=== PATIENT | female | born 1970 | race Caucasian/White ===

== ENCOUNTER 2023-10-27 05:43 | Emergency (ER) | payer MEDICAID, SELFPAY ==
[2023-10-27 05:45] VITALS: BP 140/97; PULSE 90; RESP 23; TEMP 37.1; O2SAT 97; BMI 31.3
--- NOTE | 2023-10-27 05:56 | EKG12_ITS ---
Test Reason : DYSRHYTHMIA Blood Pressure : / mmHG Vent. Rate : 068 BPM Atrial Rate : 068 BPM P-R Int : 130 ms QRS Dur : 078 ms QT Int : 412 ms P-R-T Axes : 063 099 062 degrees QTc Int : 438 ms Normal sinus rhythm Rightward axis Borderline ECG No previous ECGs available Confirmed by Harjinder Elise ([id number]), mapping editor DEVON LENNON ([id number]) on 10/28/2023 8:16:09 AM Referred By: Confirmed By:Harjinder Elise
--- NOTE | 2023-10-27 05:57 | EX.ED.DYSGE1 ---
HPI History of Present Illness Chief Complaint: General Illness Detail of Chief Complaint: Generalized weakness, hypertension, shaky Informant: patient and family Narrative Narrative: Patient brought to the emergency department for complaint of not feeling well. Patient yesterday apparently was seen at [facility] for complaint of dizziness and nausea. Her workup there was unremarkable and she was discharged to home. It was noted last week that she was at the chiropractor that her blood pressure was 150 systolic over 80s diastolic and was told to keep an eye on her blood pressure. Patient states that she slept until about midnight last night and then was just in and out of sleep. She has been under increased stress as her daughter is getting recently. No history of anxiety or panic disorder. She has had no recent illness. She has had no vomiting or diarrhea. She has had no fever. [facility] Medical History no medical history Home Medications ?Medication ?Instructions ?Recorded ?Last Taken ?Type lorazepam 1 mg tablet (Ativan) 1 mg PO TID PRN anxiety #10 tabs 10/27/23 Unknown Rx Allergy/AdvReac Type Severity Reaction Status Date / Time No Known Allergies Allergy Verified 10/27/23 05:45 Social History Smoking Status: Never smoker ROS ROS ED Review of Systems ROS Unobtainable: other Constitutional Constitutional ED: Reports lethargy; Denies chills, fever(s), sweats or weight loss Eyes Eyes: Denies blurry vision, change in vision or diplopia ENT ENT ED: Denies rhinorrhea or sore throat Cardiovascular Cardiovascular: Reports racing heartbeat; Denies chest pain or orthopnea Respiratory/Chest Respiratory/Chest: Denies cough, dyspnea, dyspnea on exertion, orthopnea or sputum Gastrointestinal Gastrointestinal: Reports nausea; Denies abdominal pain, diarrhea or vomiting Genitourinary Genitourinary ED: Denies dysuria, hematuria or urinary frequency Musculoskeletal Musculoskeletal: Denies arthralgias, back pain, myalgias or neck pain Integumentary Denies abscess, Abrasions or rash Neurologic Neurologic: Reports weakness and other Details: Feels shaky ; Denies headache(s) Psychiatric Psychiatric: Denies anxiety, depression or suicidal thoughts Endocrine Endocrinology: Denies polydipsia, polyphagia or polyuria Hematologic/Lymphatic Hematologic/Lymphatic: Denies easy bleeding, easy bruising or lymphadenopathy Allergic/Immunologic Allergic/Immunologic ED: Denies mouth swelling, tongue swelling or urticaria EXAM Physical Exam Narrative Exam Narrative: Answers questions by whispering quietly. Seems somewhat shaky and anxious. Const Vital Signs: 10/27/23 05:45 10/27/23 05:50 Temperature 98.7 F Temperature Source Oral Pulse Rate 90 Respiratory Rate 23 H Respiratory Effort Normal Respiratory Pattern Normal Blood Pressure 140/97 H Blood Pressure Mean 111 Pulse Ox 97 Oxygen Delivery Method Room Air Positive well nourished and well developed General Appearance ED: well developed and NAD HEENT Reports TM's clear and moist mucous membranes normocephalic and atraumatic; Negative for trauma or tenderness Tympanic Membrane ED: Yes TM's clear Eyes PERRL and EOMs intact bilaterally General Eye ED: Negative for pale conjunctiva or scleral icterus Neck no lymphadenopathy, supple and no JVD General: Negative for tenderness Chest Wall inspection of chest normal and palpation of chest normal Chest: Negative for tenderness Resp normal respiratory effort and clear to auscultation bilaterally Effort and Inspection: Negative for respiratory distress or pain with movement Auscultation: Negative for rhonchi, wheezes or diminished lung sounds Cardio regular rate, regular rhythm, S1 normal heart sound, S2 normal heart sound and no murmurs Peripheral Pulses: pulses 2+ throughout GI normal to inspection, nondistended, normoactive bowel sounds, soft to palpation, non-tender, non-distended and no masses Back/Spine no CVA tenderness and no thoracic nor lumbar tenderness Extremity normal to inspection General Extremety ED: Negative for edema General Extremity: Negative for edema Neuro oriented x3, CN's II-XII intact bilaterally, no sensory deficits noted and gait normal Sensorium / Orientation: awake, alert, oriented to person, oriented to place and oriented to time Motor Exam: strength 5/5 throughout and strength abnormal Psych mental status grossly normal Skin no rashes or lesions noted and no wounds MDM MDM MDM Narrative Medical decision making narrative: Patient presents to the emergency department with multiple vague complaints of blood pressure and nausea and feeling shaky. Increase stressors at home with daughter get . Seen yesterday at the emergency department and had negative workup. Clinically she looks well. She does appear anxious and somewhat shaky. IV line established. EKG obtained showed a sinus rhythm with ventricular rate of 68 bpm with no acute ST segment changes. CBC with differential was normal. Chemistries unremarkable other than a slightly depressed potassium of 3.3 for which I will give her 40 mEq potassium chloride p.o. LFTs were normal. Urinalysis normal. COVID flu and RSV testing was negative. While in department she received a milligram of Ativan IV. Patient stopped shaking and felt markedly improved. At this point I suspect likely anxiety and stress reaction as etiology of her symptoms. I will write her a prescription for as needed Ativan. She is advised to follow-up with her primary care physician within the next 3 to 5 days. Patient to return to the emergency department if condition should worsen anyway. Lab Data Attestation: I reviewed the patient's lab results. Labs: Laboratory Results - last 24 hr 10/27/23 05:55 WBC 7.4 RBC 4.66 Hgb 14.2 Hct 41.6 MCV 89.3 MCH 30.5 MCHC 34.1 RDW Std Deviation 42.0 RDW Coeff of Ryan 12.8 Plt Count 317 MPV 8.6 Immature Gran % (Auto) 0.100 Neut % (Auto) 51.6 Lymph % (Auto) 37.7 Graham % (Auto) 8.5 Eos % (Auto) 1.6 Baso % (Auto) 0.5 Absolute Neuts (auto) 3.8 Absolute Lymphs (auto) 2.80 Nucleated RBC % 0 Sodium 139 Potassium 3.3 L Chloride 106 Carbon Dioxide 24.0 Anion Gap 9 BUN 9 Creatinine 0.90 Estim Creat Clear Calc 61.80 Est GFR (MDRD) Af Amer 85 Est GFR (MDRD) Non-Af 70 BUN/Creatinine Ratio 10.0 Glucose 153 H Calcium 9.7 Total Bilirubin 0.60 AST 28 ALT 29 Alkaline Phosphatase 53 Troponin I High Sens 4 Total Protein 7.9 Albumin 3.7 Globulin 4.2 Albumin/Globulin Ratio 0.9 EKG Initial EKG: Attestation: I personally reviewed and interpreted this EKG as follows: Comments: Sinus rhythm with ventricular rate of 68 bpm with no acute ST segment change Discharge Plan Triage Chief Complaint: General Illness ED Provider: Michael Morocho Dx/Rx/DC Orders Clinical Impression: Anxiety, Hypertension Instructions: ED Anxiety Reaction, ED Hypertension, To Be Confirmed Prescriptions: New lorazepam [Ativan] 1 mg tablet 1 mg PO TID PRN (Reason: anxiety) Qty: 10 0RF Primary Care Provider: Care Physician,No Primary Referrals: Care Physician,No Primary [Primary Care Provider] - Print Language: Azeri Disposition Disposition: Home, Self Care
[2023-10-27 06:04] LABS: Absolute Neutrophil Count 3.8 X10^3/uL (2.0-7.7); Basophil# 0.04 X10^3/uL; Basophil% 0.5 % (0-1); Eosinophil# 0.12 X10^3/uL; Eosinophils% 1.6 % (0-5); Hematocrit 41.6 % (37-47); Hemoglobin 14.2 g/dL (12.0-15.0); Lymphocyte % 37.7 % (19-41); Mean Corp Hgb Conc 34.1 g/dL (32-36); Mean Corpuscular Hgb 30.5 pg (27.0-32.0); Mean Corpuscular Volume 89.3 fL (81-99); Mean Platelet Vol. 8.6 fl (6.2-12.0); Monocyte# 0.63 X10^3/uL; Monocyte% 8.5 % (0-10); NRBC Flagged by Analyzer 0 % (0-5); Neutrophil # 3.82 X10^3/uL (2.7-7.7); Neutrophil % 51.6 % (47-70); Platelet Count 317 K/mm3 (150-450); RBC Distribution Width CV 12.8 % (11.6-14.6); Red Blood Count 4.66 M/mm3 (4.2-5.4); White Blood Count 7.4 K/mm3 (4.4-11.0)
[2023-10-27] MEDS: LORazepam 2 MG/ML Syringe 1 MG IV (06:07)
[2023-10-27] MEDS: 0.9% Normal Saline (1000mL) 1,000 ML 150 ML IV (06:11)
[2023-10-27 06:26] LABS: ALB/GLOB Ratio 0.9 RATIO (0.9-2.4); AST(SGOT) 28 U/L (15-37); Alanine Aminotransfer ALT/SGPT 29 U/L (13-56); Albumin, Serum 3.7 g/dL (3.2-5.0); Alkaline Phosphatase 53 U/L (45-117); Anion Gap 9 (5-15); BUN 9 mg/dL (7-18); Calcium,Total 9.7 mg/dL (8.5-10.1); Chloride 106 mmol/L (98-107); EST Glomerular Filtration Rate 70 mL/min (>60); Est Glom Filt Rate - Afr Amer 85 mL/min (>60); Globulin 4.2 g/dL (2.2-4.2); Glucose 153 mg/dL (74-106); Potassium 3.3 mmol/L (3.5-5.1); Protein, Total 7.9 g/dL (6.4-8.2); Sodium Level 139 mmol/L (136-145); Troponin-I HS 4 pg/mL (3.0-54.0)
[2023-10-27] MEDS: Ondansetron 4 MG/2 ML Vial IV (06:36)
[2023-10-27 06:37] LABS: Bacteria 0 SEEN /hpf (None Seen); Mucous, Urine 0 SEEN /hpf (<or=2+); Red Blood Cells-Urine 0 SEEN /hpf (0-5); Squamous Epithelial Cells - UA 0 SEEN /hpf (5-10)
[2023-10-27 06:42] LABS: Color, Urine Yellow (Yellow); Glucose, Dipstick Normal (Normal); Ketone-Dipstick Negative (Negative); Leukocyte Esterase-Dipstick 500 /ul (Negative); Nitrite-Dipstick Negative (Negative); Occult Blood-Urine Negative /ul (Negative); Protein-Dipstick Negative (Negative); Urine Bilirubin Dipstick Negative (Negative); Urine Clarity Clear (Clear); Urine Urobilinogen Normal (Normal)
[2023-10-27 07:21] LABS: White Blood Cells 0-5 SEEN /hpf (0-5)
[2023-10-27 07:38] VITALS: BP 139/79; PULSE 62; RESP 18; TEMP 36.6; O2SAT 99
[2023-10-27] MEDS: Potassium Chloride Oral Tablet 20 MEQ 40 MEQ PO (07:43)
== END 2023-10-27 07:49 | disposition home or self-care (01) ==
PROVIDERS: Emergency Provider Emergency Medicine; Visit Provider Emergency Medicine
DX: I10 Essential (primary) hypertension (principal); F41.9 Anxiety disorder, unspecified
CPT/HCPCS: 80053; 81001; 84484; 85025; 87631; 93005; 96361; 96374; 96375; 99284; J7030; A4216; J2405